=== PATIENT | male | born 1960 | race Caucasian/White ===

== ENCOUNTER 2018-05-07 21:07 | Observation (INO) | payer BC ==
[2018-05-07 22:44] LABS: BASO # 0.1 10^3/uL (0.0-0.2); BASO % 1.1 % (0.0-1.0); EOS # 0.1 10^3/uL (0.0-0.50); EOS % 2.3 % (0.0-3.0); HEMATOCRIT 39.4 % (42.0-52.0); HEMOGLOBIN 13.3 g/dl (13.5-17.5); IMMATURE GRANULOCYTE % 0.2 % (0-3.0); LYMPH # 2.2 10^3/uL (1.5-4.5); LYMPH % 38.8 % (24.0-44.0); MEAN CORPUSCULAR HEMOGLOBIN 29.6 pg (27.0-33.0); MEAN CORPUSCULAR HGB CONC 33.8 g/dl (32.0-36.5); MEAN CORPUSCULAR VOLUME 87.6 fl (80.0-96.0); MONO # 0.6 10^3/uL (0.0-0.8); MONO % 10.4 % (0.0-5.0); NEUTROPHILS # 2.6 10^3/uL (1.8-7.7); NEUTROPHILS % 47.2 % (36.0-66.0); PLATELET COUNT, AUTOMATED 209 10^3/uL (150-450); RED CELL DISTRIBUTION WIDTH 12.6 % (11.5-14.5); WHITE BLOOD COUNT 5.6 10^3/uL (4.0-10.0)
[2018-05-07 22:48] LABS: INR 1.47; PROTHROMBIN TIME 18.1 SECONDS (12.1-14.4)
[2018-05-07 22:49] LABS: PARTIAL THROMBOPLASTIN TIME 36.2 SECONDS (25.4-37.6)
[2018-05-07 23:01] LABS: ALKALINE PHOSPHATASE 49 U/L (45-117); ALT/SGPT 27 U/L (12-78); AST/SGOT 15 U/L (7-37); BILIRUBIN,DIRECT < 0.1 MG/DL (0.0-0.2); BILIRUBIN,TOTAL 0.3 MG/DL (0.2-1.0); BLOOD UREA NITROGEN 14 MG/DL (7-18); CALCIUM LEVEL 8.5 MG/DL (8.5-10.1); CHLORIDE LEVEL 109 MEQ/L (98-107); CPK CREATINE PHOSPHOKINASE 102 U/L (39-308); CREATININE FOR GFR 1.24 MG/DL (0.70-1.30); GLUCOSE, FASTING 91 MG/DL (70-100); POTASSIUM SERUM 3.9 MEQ/L (3.5-5.1); SODIUM LEVEL 144 MEQ/L (136-145); TROPONIN I < 0.02 NG/ML (< 0.10)
[2018-05-07 23:07] LABS: CK-MB VALUE MASS < 1.0 NG/ML (<3.6); MB/CK RELATIVE INDEX 0.98 (< OR =4)
[2018-05-07] MEDS: NS 1,000 ML IV (23:25)
[2018-05-07] MEDS ORDERED: ISOVUE-370 76% 100ML VIAL (Q9967) As Ordered (23:27)
[2018-05-08] MEDS ORDERED: ALBUTEROL SULFATE 2.5 MG/0.5 ML INH NEB SOLN NEB (02:15)
[2018-05-08] MEDS ORDERED: ACETAMINOPHEN TAB 650MG DOSE (2X325MG) PO (02:15)
[2018-05-08] MEDS: HEPARIN DRIP 25,000 UNITS in APPROPRIATE DILUENT 1 EA IV ×2 (04:13→06:37)
[2018-05-08 04:27] LABS: TROPONIN I < 0.02 NG/ML (< 0.10)
[2018-05-08] MEDS ORDERED: HEPARIN DRIP 25,000 UNITS in APPROPRIATE DILUENT 1 EA IV (04:31)
[2018-05-08] MEDS ORDERED: HEPARIN SOD (PORCINE) 5000 UNITS/ML VIAL IV ×3 (04:45→06:30)
[2018-05-08 05:38] LABS: HEMATOCRIT 37.6 % (42.0-52.0); HEMOGLOBIN 12.4 g/dl (13.5-17.5); MEAN CORPUSCULAR VOLUME 88.1 fl (80.0-96.0); PLATELET COUNT, AUTOMATED 193 10^3/uL (150-450); RED BLOOD COUNT 4.27 10^6/uL (4.30-6.10); RED CELL DISTRIBUTION WIDTH 12.7 % (11.5-14.5); WHITE BLOOD COUNT 5.4 10^3/uL (4.0-10.0)
[2018-05-08 07:35] LABS: ALBUMIN 3.4 GM/DL (3.2-5.2); ALBUMIN/GLOBULIN RATIO 1.06 (1.00-1.93); ALKALINE PHOSPHATASE 44 U/L (45-117); ALT/SGPT 27 U/L (12-78); ANION GAP 7 MEQ/L (8-16); AST/SGOT 14 U/L (7-37); BILIRUBIN,TOTAL 0.3 MG/DL (0.2-1.0); BLOOD UREA NITROGEN 17 MG/DL (7-18); CALCIUM LEVEL 8.3 MG/DL (8.5-10.1); CARBON DIOXIDE LEVEL 28 MEQ/L (21-32); CHLORIDE LEVEL 110 MEQ/L (98-107); CREATININE FOR GFR 1.24 MG/DL (0.70-1.30); GLOMERULAR FILTRATION RATE > 60.0 (>56); GLUCOSE, FASTING 91 MG/DL (70-100); MAGNESIUM LEVEL 2.1 MG/DL (1.8-2.4); POTASSIUM SERUM 4.3 MEQ/L (3.5-5.1); SODIUM LEVEL 145 MEQ/L (136-145); TOTAL PROTEIN 6.6 GM/DL (6.4-8.2)
[2018-05-08 12:32] LABS: PARTIAL THROMBOPLASTIN TIME 72.5 SECONDS (25.4-37.6)
[2018-05-08 14:43] LABS: ALBUMIN 3.6 GM/DL (3.2-5.2); ALBUMIN/GLOBULIN RATIO 1.06 (1.00-1.93); ANION GAP 7 MEQ/L (8-16); CARBON DIOXIDE LEVEL 28 MEQ/L (21-32)
[2018-05-08 15:07] LABS: BASO # 0.1 10^3/uL (0.0-0.2); BASO % 0.9 % (0.0-1.0); EOS # 0.2 10^3/uL (0.0-0.50); EOS % 2.4 % (0.0-3.0); HEMATOCRIT 38.8 % (42.0-52.0); HEMOGLOBIN 13.5 g/dl (13.5-17.5); IMMATURE GRANULOCYTE % 0.2 % (0-3.0); LYMPH # 1.9 10^3/uL (1.5-4.5); LYMPH % 30.1 % (24.0-44.0); MEAN CORPUSCULAR HEMOGLOBIN 29.7 pg (27.0-33.0); MEAN CORPUSCULAR HGB CONC 34.8 g/dl (32.0-36.5); MEAN CORPUSCULAR VOLUME 85.5 fl (80.0-96.0); MONO # 0.4 10^3/uL (0.0-0.8); MONO % 6.8 % (0.0-5.0); NEUTROPHILS # 3.8 10^3/uL (1.8-7.7); NEUTROPHILS % 59.6 % (36.0-66.0); PLATELET COUNT, AUTOMATED 215 10^3/uL (150-450); RED BLOOD COUNT 4.54 10^6/uL (4.30-6.10); RED CELL DISTRIBUTION WIDTH 12.5 % (11.5-14.5); WHITE BLOOD COUNT 6.3 10^3/uL (4.0-10.0)
[2018-05-08 15:22] LABS: PROTHROMBIN TIME 14.3 SECONDS (12.1-14.4)
[2018-05-08 15:25] LABS: ERYTHROCYTE SEDIMENTATION RATE 12 mm/hr (0-20)
[2018-05-08 15:33] LABS: C REACTIVE PROTEIN QUANTITATIV < 0.30 MG/DL (0.00-0.30)
[2018-05-08] MEDS: RIVAROXABAN 15 MG TAB (XARELTO) PO (17:36)
[2018-05-08] MEDS ORDERED: APIXABAN 5 MG TAB (ELIQUIS) PO (18:00)
[2018-05-09 06:19] LABS: HEMATOCRIT 38.1 % (42.0-52.0); HEMOGLOBIN 12.6 g/dl (13.5-17.5); MEAN CORPUSCULAR HGB CONC 33.1 g/dl (32.0-36.5); MEAN CORPUSCULAR VOLUME 87.8 fl (80.0-96.0); PLATELET COUNT, AUTOMATED 198 10^3/uL (150-450); RED BLOOD COUNT 4.34 10^6/uL (4.30-6.10); RED CELL DISTRIBUTION WIDTH 12.6 % (11.5-14.5); WHITE BLOOD COUNT 5.5 10^3/uL (4.0-10.0)
[2018-05-09 06:48] LABS: ANION GAP 5 MEQ/L (8-16); BLOOD UREA NITROGEN 14 MG/DL (7-18); CALCIUM LEVEL 8.6 MG/DL (8.5-10.1); CARBON DIOXIDE LEVEL 28 MEQ/L (21-32); CHLORIDE LEVEL 110 MEQ/L (98-107); CREATININE FOR GFR 1.17 MG/DL (0.70-1.30); GLOMERULAR FILTRATION RATE > 60.0 (>56); GLUCOSE, FASTING 84 MG/DL (70-100); POTASSIUM SERUM 4.1 MEQ/L (3.5-5.1); SODIUM LEVEL 143 MEQ/L (136-145)
[2018-05-09] MEDS: RIVAROXABAN 15 MG TAB (XARELTO) PO (08:29)
[2018-05-10 10:35] LABS: DRVV SCREEN 38.1 SEC; PTT LUPUS TYPE ANTICOAG SCREEN 0.9 (0-1.2)
== END 2018-05-09 10:08 | disposition home or self-care (01) ==
LOC: M ED INP 21:08 → M ED 21:07 → M MSPAV 05-08 04:22
DX: R07.89 Other chest pain (principal); R06.02 Shortness of breath; Z86.711 Personal history of pulmonary embolism; D64.9 Anemia, unspecified; Z79.02 Long term (current) use of antithrombotics/antiplatelets; Z87.891 Personal history of nicotine dependence
CPT/HCPCS: Q9967

== ENCOUNTER → 2018-05-24 | Outpatient (REF) | payer BC ==
[2018-05-24 18:55] LABS: D-DIMER QUANT 179.2 ng/ml (<500)
== END ==
LOC: M SFHCPLAZ 15:32
DX: Z00.00 Encounter for general adult medical examination without abnormal findings (principal)
CPT/HCPCS: 36415

== ENCOUNTER → 2018-06-29 | Outpatient (CLI) | payer BC | LOC: M CARPUL 08:32 | DX: G47.34 Idiopathic sleep related nonobstructive alveolar hypoventilation (principal) | CPT/HCPCS: 94060 ==

== ENCOUNTER → 2018-06-30 | Outpatient (CLI) | payer BC | LOC: M RAD 09:48 | DX: I26.99 Other pulmonary embolism without acute cor pulmonale (principal) | CPT/HCPCS: 71046 ==

== ENCOUNTER → 2018-07-18 | Outpatient (CLI) | payer BC | LOC: M SLEEP HO 12:45 | DX: G47.30 Sleep apnea, unspecified (principal) | CPT/HCPCS: G0399 ==

== ENCOUNTER 2018-09-28 07:53 | Day surgery (SDC) | payer BC ==
[~2018-09-28] VITALS: Ht 180.3 cm; Wt 100.6 kg
[~2018-09-28 07:53] MED LIST: NS 1,000 ML IV ONE; PROPOFOL 200 MG/20 ML VIAL As Ordered ONE; XARE15TA PO; XARE20TA PO
--- NOTE | 2018-09-28 09:31 | ROOR ---
Patient Name: Clair Stewart Procedure Date: 09/28/2018 9:05 AM Date of : 1960 Age: 58 Room: [facility] Gender: Male Note Status: Finalized Procedure: Colonoscopy Indications: Screening for colorectal malignant neoplasm Providers: Chavez Carlson DO Referring MD: Edgardo Schuler Do Requesting Provider: Medicines: Propofol per Anesthesia Complications: No immediate complications. Estimated blood loss: Minimal. Procedure: Pre-Anesthesia Assessment: - Prior to the procedure, a History and Physical was performed, and patient medications and allergies were reviewed. The patient is competent. The risks and benefits of the procedure and the sedation options and risks were discussed with the patient. All questions were answered and informed consent was obtained. Patient identification and proposed procedure were verified by the physician, the nurse, the anesthesiologist and the breeder service technician in the endoscopy suite. Mental Status Examination: alert and oriented. Airway Examination: normal oropharyngeal airway and neck mobility. Respiratory Examination: clear to auscultation. CV Examination: normal. Prophylactic Antibiotics: The patient does not require prophylactic antibiotics. Prior Anticoagulants: The patient has taken no previous anticoagulant or antiplatelet agents. ASA Grade Assessment: II - A patient with mild systemic disease. After reviewing the risks and benefits, the patient was deemed in satisfactory condition to undergo the procedure. The anesthesia plan was to use monitored anesthesia care (MAC). Immediately prior to administration of medications, the patient was re-assessed for adequacy to receive sedatives. The heart rate, respiratory rate, oxygen saturations, blood pressure, adequacy of pulmonary ventilation, and response to care were monitored throughout the procedure. The physical status of the patient was re-assessed after the procedure. The Colonoscope was introduced through the anus and advanced to the cecum, identified by the appendiceal orifice, ileocecal valve and palpation. The colonoscopy was performed without difficulty. The patient tolerated the procedure well. Findings: Multiple small and large-mouthed diverticula were found in the entire colon. Two hyperplastic polyps were found in the sigmoid colon. The polyps were 2 to 5 mm in size. These polyps were removed with a jumbo cold forceps. Resection and retrieval were complete. Estimated blood loss was minimal. The exam was otherwise without abnormality on direct and retroflexion views. Impression: - Diverticulosis in the entire examined colon. - Two 2 to 5 mm polyps in the sigmoid colon, removed with a jumbo cold forceps. Resected and retrieved. - The examination was otherwise normal on direct and retroflexion views. Recommendation: - Patient has a contact number available for emergencies. The signs and symptoms of potential delayed complications were discussed with the patient. Return to normal activities tomorrow. Written discharge instructions were provided to the patient. - Telephone my office for pathology results in 1 week. - Repeat colonoscopy in 5-10 years for surveillance based on pathology results. - Return to my office PRN. Chavez Carlson DO 09/28/2018 9:31:39 AM This report has been signed electronically. Number of Addenda: 0 Note Initiated On: 09/28/2018 9:05 AM Estimated Blood Loss: Estimated blood loss was minimal.
[2018-09-28 09:59] VITALS: BP 111/71
== END 2018-09-28 10:01 | disposition home or self-care (01) ==
LOC: M OPP 07:53
PROVIDERS: ATTEND Surgery
DX: Z12.11 Encounter for screening for malignant neoplasm of colon (principal); D12.5 Benign neoplasm of sigmoid colon; K63.5 Polyp of colon; K57.30 Diverticulosis of large intestine without perforation or abscess without bleeding; G47.30 Sleep apnea, unspecified

== ENCOUNTER → 2020-02-16 | Outpatient (CLI) | payer BC ==
[~2020-02-16] MED LIST changes: -NS 1,000 ML IV ONE; -PROPOFOL 200 MG/20 ML VIAL As Ordered ONE
--- NOTE | 2020-02-18 09:15 | ECHO ---
DATE OF SERVICE: 02/16/2020 REFERRING PROVIDER: Tonia Patel MD PATIENT LOCATION: Outpatient. REASON FOR THE STUDY: Shortness of breath, obstructive sleep apnea, history of ventricular septal defect: repaired. 2D MEASUREMENTS: IVS: 1.2 cm LV: 5.2 cm LVPW: 1.0 cm LA: 4.1 cm Aorta: 3.6 cm IVC: 1.4 cm DOPPLER MEASUREMENTS: Peak velocity across the aortic valve: 1.0 m/s Peak velocity across the LVOT: 0.79 m/s Mitral E: 1.0 Mitral A: 1.1 with a ratio of 0.9 2D COMMENTS: 1. Normal left ventricular size, wall thickness, and low normal global left ventricular systolic function. The estimated left ventricular systolic ejection fraction is 50% to 55%. 2. Mildly dilated left atrium. The right atrium appeared to be mildly enlarged. The right ventricle free wall was not well visualized. The patient had ventricular septal defect (VSD) repaired, patched. 3. The atrial septum appeared to be normal without evidence of defect or shunt. 4. Normal aortic root. 5. No pericardial effusion seen. 6. Mildly calcified aortic valve with normal leaflet excursion. No mitral valve, tricuspid valve, and pulmonic valve. 7. The inferior vena cava was normal in size, central venous pressure is probably normal. DOPPLER: Only trace to mild mitral regurgitation detected. Abnormal relaxation pattern was noted across the mitral valve leaflets consistent with features of grade 1 left ventricular diastolic dysfunction. IMPRESSION: 1. Low normal global left ventricular systolic function. There are some features of left ventricular diastolic dysfunction, abnormal relaxation. 2. Aortic valve sclerosis without stenosis or aortic regurgitation. 3. Trace to mild mitral regurgitation with a mildly enlarged left atrium at 4.1 cm. 4. The patient had prior slight ventricular septal defect repaired/patched.
== END ==
LOC: M CARPUL 09:05
PROVIDERS: ATTEND Internal Medicine Pulmonary Disease
DX: G47.33 Obstructive sleep apnea (adult) (pediatric) (principal)

== ENCOUNTER → 2020-08-08 | Outpatient (REF) | payer BC ==
[2020-08-08 15:09] LABS: BASO # 0.1 10^3/uL (0.0-0.2); EOS # 0.1 10^3/uL (0.0-0.5); EOS % 1.7 % (0.0-3.0); HEMATOCRIT 46.7 % (42.0-52.0); HEMOGLOBIN 14.9 g/dl (13.5-17.5); LYMPH # 2.2 10^3/uL (1.5-5.0); LYMPH % 36.3 % (24.0-44.0); MEAN CORPUSCULAR HEMOGLOBIN 27.9 pg (27.0-33.0); MEAN CORPUSCULAR HGB CONC 31.9 g/dl (32.0-36.5); MEAN CORPUSCULAR VOLUME 87.5 fl (80.0-96.0); MONO # 0.6 10^3/uL (0.0-0.8); MONO % 9.4 % (0.0-5.0); NEUTROPHILS # 3.1 10^3/uL (1.5-8.5); NEUTROPHILS % 51.3 % (36.0-66.0); PLATELET COUNT, AUTOMATED 243 10^3/uL (150-450); RED BLOOD COUNT 5.34 10^6/uL (4.30-6.10)
[2020-08-08 17:15] LABS: ALBUMIN 4.1 GM/DL (3.2-5.2); BILIRUBIN,TOTAL 0.5 MG/DL (0.2-1.0); CALCIUM LEVEL 9.6 MG/DL (8.8-10.2); CHOLESTEROL RISK RATIO 3.545 (<5); CREATININE FOR GFR 1.32 MG/DL (0.70-1.30); FREE T4 1.12 NG/DL (0.76-1.46); GLOMERULAR FILTRATION RATE 58.7 (>49); THYROID STIMULATING HORMONE 2.22 uIU/ML (0.358-3.740); TOTAL PROTEIN 7.7 GM/DL (6.4-8.2)
[2020-08-08 20:10] LABS: HEMOGLOBIN A1c 5.3 %
== END ==
LOC: M SFHCPLAZ 10:40
PROVIDERS: ATTEND Family Medicine
DX: R53.83 Other fatigue (principal); Z13.1 Encounter for screening for diabetes mellitus; Z13.220 Encounter for screening for lipoid disorders

== ENCOUNTER → 2020-08-15 | Outpatient (CLI) | payer BC ==
--- NOTE | 2020-08-15 08:39 | REP ---
INDICATION: R22.1 RT POSTERIOR NECK MASS. COMPARISON: None. TECHNIQUE: Multiple real-time ultrasonographic images. FINDINGS: Ultrasonography of a palpable lump posteriorly in the neck on the right reveals an ovoid mass with an echo lucent rim and echogenic center compatible with lymph node measuring 1.5 by 0.5 by 1.8 cm. This is upper normal size. IMPRESSION: The ultrasound findings are compatible with an upper normal size lymph node corresponding to the palpable lump. <Electronically signed by Chavez Dey > 08/15/20 0800
== END ==
LOC: M WHC 06:39
PROVIDERS: ATTEND Family Medicine
DX: R22.1 Localized swelling, mass and lump, neck (principal)

== ENCOUNTER → 2022-01-07 | Outpatient (REF) | payer OTHER | LOC: M SFHCPLAZ 19:57 | PROVIDERS: ATTEND Student in an Organized Health Care Education/Training Program | DX: J06.9 Acute upper respiratory infection, unspecified (principal) ==

== ENCOUNTER → 2022-05-06 | Outpatient (CLI) | payer OTHER ==
[~2022-05-06] MED LIST changes: +GASTROGRAFIN SOLUTION 30ML (Q9963) As Ordered ONE; +ISOVUE-370 76% 100ML VIAL As Ordered ONE
== END ==
LOC: M RAD 08:05
PROVIDERS: ATTEND Physician Assistant
DX: K60.5 Anorectal fistula (principal)
CPT/HCPCS: 74177; Q9963; Q9967

== ENCOUNTER → 2022-05-25 | Outpatient (CLI) | payer OTHER ==
[~2022-05-25] MED LIST changes: -GASTROGRAFIN SOLUTION 30ML (Q9963) As Ordered ONE; -ISOVUE-370 76% 100ML VIAL As Ordered ONE
== END ==
LOC: M RAD 13:04
PROVIDERS: ATTEND Physician Assistant
DX: R91.8 Other nonspecific abnormal finding of lung field (principal); Z87.891 Personal history of nicotine dependence

== ENCOUNTER → 2023-12-29 | Outpatient (CLI) | payer MEDICARE, OTHER | LOC: M RAD 10:56 | PROVIDERS: ATTEND Physician Assistant | DX: R06.00 Dyspnea, unspecified (principal); R91.1 Solitary pulmonary nodule ==

== ENCOUNTER 2024-02-18 07:54 | Day surgery (SDC) | payer MEDICARE, OTHER ==
[~2024-02-18] VITALS: Ht 180.3 cm; Wt 97.1 kg
[~2024-02-18 07:54] MED LIST changes: +FLUO-365 PO; +ROSU20TA61 PO
[2024-02-18] MEDS: NS 1,000 ML IV ONE (08:07)
[2024-02-18] MEDS ORDERED: propofoL 200 MG/20 ML VIAL As Ordered ONE (09:16)
[2024-02-18 09:22] VITALS: TEMP 97.8
[2024-02-18 09:36] VITALS: BP 117/71; O2SAT 98
[2024-02-18] MEDS ORDERED: fentaNYL 100 MCG/2 ML INJECTION As Ordered ONE (09:40)
== END 2024-02-18 09:46 | disposition home or self-care (01) ==
LOC: M OPP 07:54
PROVIDERS: ATTEND Surgery
DX: Z12.11 Encounter for screening for malignant neoplasm of colon (principal); Z86.010 Personal history of colon polyps; K64.1 Second degree hemorrhoids; K57.30 Diverticulosis of large intestine without perforation or abscess without bleeding; Z79.02 Long term (current) use of antithrombotics/antiplatelets; Z79.899 Other long term (current) drug therapy; G47.30 Sleep apnea, unspecified; Z87.891 Personal history of nicotine dependence

== ENCOUNTER 2024-09-01 21:12 | Inpatient (IN) | payer MEDICARE, OTHER ==
[~2024-09-01] VITALS: Ht 180.3 cm; Wt 106.3 kg
[~2024-09-01 21:12] MED LIST changes: -ROSU20TA61 PO; +ROSU20TA86 PO
[2024-09-01] MEDS ORDERED: PROPOFOL 1,000 MG/100 ML VIAL As Ordered ONE (21:36)
[2024-09-01] MEDS: ETOMIDATE INJ 20MG/10ML VIAL IV STA (21:47)
[2024-09-01 21:59] LABS: BASO # 0.1 10^3/uL (0.0-0.2); BASO % 1.4 % (0.0-1.0); EOS # 0.1 10^3/uL (0.0-0.5); EOS % 1.9 % (0.0-3.0); HEMATOCRIT 42.7 % (42.0-52.0); HEMOGLOBIN 13.8 g/dl (13.5-17.5); LYMPH # 2.5 10^3/uL (1.5-5.0); LYMPH % 38.6 % (24.0-44.0); MEAN CORPUSCULAR HEMOGLOBIN 28.4 pg (27.0-33.0); MEAN CORPUSCULAR HGB CONC 32.3 g/dl (32.0-36.5); MEAN CORPUSCULAR VOLUME 87.9 fl (80.0-96.0); MONO # 0.6 10^3/uL (0.0-0.8); MONO % 8.7 % (2.0-8.0); NEUTROPHILS # 3.1 10^3/uL (1.5-8.5); NEUTROPHILS % 49.2 % (36.0-66.0); PLATELET COUNT, AUTOMATED 234 10^3/uL (150-450); RED BLOOD COUNT 4.86 10^6/uL (4.30-6.10); WHITE BLOOD COUNT 6.4 10^3/uL (4.0-10.0)
[2024-09-01] MEDS: CHARCOAL ACTIVATED LIQUID 25GM/120ML BTL PO ONE (22:00)
[2024-09-01] MEDS: ROCURONIUM BROMIDE 50MG/5ML VIAL IV SCH (22:18)
[2024-09-01] MEDS: propofoL 1,000 MG in IV 1 EA IV SCH (22:26)
[2024-09-01 22:31] LABS: ABG BASE EXCESS -1.6 (-2.0-2.0); ABG HCO3 24.3 MMOL/L (22.0-26.0); ABG O2 SATURATION 91.7 % (95.0-99.0); ABG PARTIAL PRESSURE CO2 45.1 mmHg (35.0-45.0); ABG PARTIAL PRESSURE O2 64.1 mmHg (75.0-100.0); ABG TOTAL CO2 25.7 MMOL/L (23.0-31.0); ABG pH (ARTERIAL) 7.349 UNITS (7.350-7.450)
[2024-09-01 22:37] LABS: ETHYL ALCOHOL (ETHANOL) 0.208 % (0.000-0.010)
[2024-09-01 22:38] LABS: ALBUMIN 3.8 G/DL (3.2-5.2); ALKALINE PHOSPHATASE 60 U/L (40-129); ALT/SGPT 25 U/L (7.0-40); AST/SGOT 14 U/L (<34); BILIRUBIN,DIRECT 0.1 MG/DL (<0.4); BILIRUBIN,TOTAL 0.4 MG/DL (0.3-1.2); BLOOD UREA NITROGEN 13 MG/DL (9-23); CALCIUM LEVEL 9.3 MG/DL (8.3-10.6); CARBON DIOXIDE LEVEL 29 MMOL/L (20-31); CHLORIDE LEVEL 101 MMOL/L (98-107); CPK CREATINE PHOSPHOKINASE 69 U/L (46-171); GLOMERULAR FILTRATION RATE > 60.0 (>49); GLUCOSE, FASTING 89 MG/DL (74-106); SALICYLATE LEVEL < 3.0 MG/DL (<30); SODIUM LEVEL 137 MMOL/L (136-145); TOTAL PROTEIN 7.4 G/DL (5.7-8.2)
[2024-09-01 22:40] LABS: THYROID STIMULATING HORMONE 2.237 uIU/ML (0.55-4.78)
[2024-09-01] MEDS ORDERED: CEFDINIR 300 MG CAP (OMNICEF) PO ONE (22:40)
[2024-09-01] MEDS ORDERED: HOME MED LIST COMPLETE! XX SCH (23:10)
[2024-09-01] MEDS ORDERED: MAALOX 30 ML SUSP *UDC PO PRN (23:55)
[2024-09-01] MEDS ORDERED: MOM 30ML SUSPENSION UDC PO PRN (23:55)
[2024-09-01] MEDS ORDERED: ACETAMINOPHEN 325 MG TAB PO PRN (23:55)
[2024-09-02] VITALS (19 sets, daily range): BP systolic 87–141; BP diastolic 49–86; TEMP 97–98.9; O2SAT 89–99
[2024-09-02 00:20] LABS: AMPHETAMINES LEVEL URINE NEGATIVE (NEGATIVE); BARBITURATES URINE NEGATIVE (NEGATIVE); BENZODIAZEPINES URINE NEGATIVE (NEGATIVE); CANNABINOIDS URINE NEGATIVE (NEGATIVE); COCAINE METABOLITE URINE NEGATIVE (NEGATIVE); METHADONE URINE NEGATIVE (NEGATIVE); OPIATES URINE NEGATIVE (NEGATIVE); PHENCYCLIDINE URINE NEGATIVE (NEGATIVE)
[2024-09-02] MEDS: dexmedeTOMidine 200 MCG in IV 1 EA IV SCH (01:14)
[2024-09-02 01:52] LABS: ABG BASE EXCESS -2.2 (-2.0-2.0); ABG HCO3 22.7 MMOL/L (22.0-26.0); ABG O2 SATURATION 96.4 % (95.0-99.0); ABG PARTIAL PRESSURE CO2 39.6 mmHg (35.0-45.0); ABG PARTIAL PRESSURE O2 85.9 mmHg (75.0-100.0); ABG STANDARD HCO3 22.6 MMOL/L. (22.0-26.0); ABG TOTAL CO2 23.9 MMOL/L (23.0-31.0); ABG pH (ARTERIAL) 7.376 UNITS (7.350-7.450)
[2024-09-02] MEDS: propofoL 1,000 MG in IV 1 EA IV SCH (04:05)
[2024-09-02 04:39] LABS: HEMATOCRIT 39.2 % (42.0-52.0); HEMOGLOBIN 13.2 g/dl (13.5-17.5); MEAN CORPUSCULAR HEMOGLOBIN 29.2 pg (27.0-33.0); MEAN CORPUSCULAR HGB CONC 33.7 g/dl (32.0-36.5); MEAN CORPUSCULAR VOLUME 86.7 fl (80.0-96.0); PLATELET COUNT, AUTOMATED 196 10^3/uL (150-450); RED BLOOD COUNT 4.52 10^6/uL (4.30-6.10); WHITE BLOOD COUNT 8.2 10^3/uL (4.0-10.0)
[2024-09-02 05:15] LABS: ALBUMIN 3.4 G/DL (3.2-5.2); ALKALINE PHOSPHATASE 54 U/L (40-129); ALT/SGPT 22 U/L (7.0-40); AST/SGOT 15 U/L (<34); BILIRUBIN,TOTAL 0.5 MG/DL (0.3-1.2); BLOOD UREA NITROGEN 14 MG/DL (9-23); CALCIUM LEVEL 8.8 MG/DL (8.3-10.6); CARBON DIOXIDE LEVEL 23 MMOL/L (20-31); CHLORIDE LEVEL 102 MMOL/L (98-107); CREATININE FOR GFR 1.09 MG/DL (0.70-1.30); GLOMERULAR FILTRATION RATE > 60.0 (>49); GLUCOSE, FASTING 109 MG/DL (74-106); MAGNESIUM LEVEL 1.7 MG/DL (1.8-2.4); POTASSIUM SERUM 3.9 MMOL/L (3.5-5.1); SODIUM LEVEL 138 MMOL/L (136-145); TOTAL PROTEIN 6.5 G/DL (5.7-8.2)
[2024-09-02] MEDS: SODIUM CHLORIDE 0.9% 1000 ML IV ONE (05:59)
[2024-09-02] MEDS: LR 1,000 ML IV STA (07:47)
[2024-09-02] MEDS: NOREPINEPHRINE 4MG IN D5 250ML 4 MG in IV 1 EA IV SCH (07:56)
[2024-09-02 08:00] LABS: ABG BASE EXCESS -1.1 (-2.0-2.0); ABG HCO3 21.9 MMOL/L (22.0-26.0); ABG O2 SATURATION 89.2 % (95.0-99.0); ABG PARTIAL PRESSURE CO2 31.7 mmHg (35.0-45.0); ABG PARTIAL PRESSURE O2 53.2 mmHg (75.0-100.0); ABG STANDARD HCO3 23.4 MMOL/L. (22.0-26.0); ABG TOTAL CO2 22.9 MMOL/L (23.0-31.0); ABG pH (ARTERIAL) 7.458 UNITS (7.350-7.450)
[2024-09-02] MEDS: DOCUSATE SODIUM 100MG CAPSULE PO SCH (09:00)
[2024-09-02] MEDS: MAG SULF 1GM/100ML (MAG RUN) 1 GM in IV 1 EA IV ONE (10:09)
[2024-09-02] MEDS: PANTOPRAZOLE 40MG VIAL IV SCH (10:09)
[2024-09-02 14:09] LABS: PROCALCITONIN 0.45 ng/ml
[2024-09-02] MEDS: ROSUVASTATIN 10 MG TAB (CRESTOR) PO SCH (21:51)
[2024-09-03] VITALS (33 sets, daily range): BP systolic 72–138; BP diastolic 44–74; TEMP 97.3–97.9; O2SAT 91–97
[2024-09-03 04:58] LABS: HEMATOCRIT 37.7 % (42.0-52.0); HEMOGLOBIN 12.2 g/dl (13.5-17.5); MEAN CORPUSCULAR HEMOGLOBIN 28.9 pg (27.0-33.0); MEAN CORPUSCULAR HGB CONC 32.4 g/dl (32.0-36.5); MEAN CORPUSCULAR VOLUME 89.3 fl (80.0-96.0); PLATELET COUNT, AUTOMATED 179 10^3/uL (150-450); RED BLOOD COUNT 4.22 10^6/uL (4.30-6.10); WHITE BLOOD COUNT 8.5 10^3/uL (4.0-10.0)
[2024-09-03 05:27] LABS: ALBUMIN 2.9 G/DL (3.2-5.2); ALKALINE PHOSPHATASE 47 U/L (40-129); ALT/SGPT 16 U/L (7.0-40); AST/SGOT 9 U/L (<34); BILIRUBIN,TOTAL 0.6 MG/DL (0.3-1.2); BLOOD UREA NITROGEN 16 MG/DL (9-23); CALCIUM LEVEL 8.7 MG/DL (8.3-10.6); CARBON DIOXIDE LEVEL 28 MMOL/L (20-31); CHLORIDE LEVEL 108 MMOL/L (98-107); CREATININE FOR GFR 1.15 MG/DL (0.70-1.30); GLOMERULAR FILTRATION RATE > 60.0 (>49); GLUCOSE, FASTING 103 MG/DL (74-106); MAGNESIUM LEVEL 2.4 MG/DL (1.8-2.4); SODIUM LEVEL 143 MMOL/L (136-145); TOTAL PROTEIN 6.1 G/DL (5.7-8.2)
[2024-09-03] MEDS: HEPARIN SOD (PORCINE) 5000UNITS/ML 1ML VIAL/SYRINGE SC SCH (06:00)
[2024-09-03] MEDS: CEPACOL LOZENGE PO PRN (18:23)
[2024-09-03] MEDS: ENOXAPARIN 40MG/0.4ML SYRINGE (J1650 PER 10MG) SC SCH (21:12)
[2024-09-04 04:05] VITALS: BP 125/74; TEMP 97.7; O2SAT 93
[2024-09-04 07:31] LABS: HEMATOCRIT 39.8 % (42.0-52.0); HEMOGLOBIN 13.2 g/dl (13.5-17.5); MEAN CORPUSCULAR HEMOGLOBIN 28.9 pg (27.0-33.0); MEAN CORPUSCULAR HGB CONC 33.2 g/dl (32.0-36.5); MEAN CORPUSCULAR VOLUME 87.1 fl (80.0-96.0); PLATELET COUNT, AUTOMATED 191 10^3/uL (150-450); RED BLOOD COUNT 4.57 10^6/uL (4.30-6.10); WHITE BLOOD COUNT 5.9 10^3/uL (4.0-10.0)
[2024-09-04 07:52] LABS: ALBUMIN 3.3 G/DL (3.2-5.2); ALKALINE PHOSPHATASE 51 U/L (40-129); ALT/SGPT 19 U/L (7.0-40); AST/SGOT 12 U/L (<34); BILIRUBIN,TOTAL 0.6 MG/DL (0.3-1.2); BLOOD UREA NITROGEN 16 MG/DL (9-23); CALCIUM LEVEL 9.3 MG/DL (8.3-10.6); CARBON DIOXIDE LEVEL 27 MMOL/L (20-31); CHLORIDE LEVEL 108 MMOL/L (98-107); CREATININE FOR GFR 1.19 MG/DL (0.70-1.30); GLOMERULAR FILTRATION RATE > 60.0 (>49); GLUCOSE, FASTING 85 MG/DL (74-106); POTASSIUM SERUM 4.3 MMOL/L (3.5-5.1); SODIUM LEVEL 142 MMOL/L (136-145); TOTAL PROTEIN 6.9 G/DL (5.7-8.2)
[2024-09-04] MEDS: CEPACOL LOZENGE PO ONE (08:52)
[2024-09-04] MEDS: CHLORASEPTIC SPRAY MT ONE (11:33)
[2024-09-04 12:00] VITALS: BP 121/75; TEMP 97.5; O2SAT 96
[2024-09-04] MEDS: CEPACOL LOZENGE PO SCH (14:11)
[2024-09-04] MEDS ORDERED: BENZ1LOZ9 PO (17:19)
[2024-09-04] MEDS ORDERED: CHLO1.4S7 MT (17:49)
[2024-09-04] MEDS: CHLORASEPTIC SPRAY MT SCH (17:55)
[2024-09-04 19:49] VITALS: BP 134/89; TEMP 98.1; O2SAT 94
== END 2024-09-05 01:45 | DRG 917 ==
LOC: M ED 21:12 → EDBD 21:12 → M ED INP 23:52 → M ICU 09-02 01:03 → M MS5PR 09-03 17:52
PROVIDERS: ADMIT Student in an Organized Health Care Education/Training Program; ATTEND Student in an Organized Health Care Education/Training Program
PROC: 5A1935Z Respiratory Ventilation, Less than 24 Consecutive Hours (ICD-10-PCS; 2024-09-01)
PROC: 0BH17EZ Insertion of Endotracheal Airway into Trachea, Via Natural or Artificial Opening (ICD-10-PCS; 2024-09-01)
PROC: B246ZZZ Ultrasonography of Right and Left Heart (ICD-10-PCS; principal; 2024-09-02)
DX: T42.4X2A Poisoning by benzodiazepines, intentional self-harm, initial encounter (principal); R40.2A Nontraumatic coma due to underlying condition; G92.8 Other toxic encephalopathy; J98.11 Atelectasis; E87.20 Acidosis, unspecified; F32.2 Major depressive disorder, single episode, severe without psychotic features; T14.91XA Suicide attempt, initial encounter; F41.9 Anxiety disorder, unspecified; F32.A Depression, unspecified; E78.5 Hyperlipidemia, unspecified; Z91.51 Personal history of suicidal behavior; Z86.711 Personal history of pulmonary embolism; Z79.899 Other long term (current) drug therapy; Z96.659 Presence of unspecified artificial knee joint

== ENCOUNTER 2024-09-05 00:25 | Inpatient (IN) | payer MEDICARE, OTHER ==
[~2024-09-05] VITALS: Ht 180.3 cm; Wt 106.3 kg
[~2024-09-05 00:25] MED LIST changes: +BENZ1LOZ9 PO; +CHLO1.4S7 MT
[2024-09-05] MEDS ORDERED: ACETAMINOPHEN 325 MG TAB PO PRN (00:35)
[2024-09-05] MEDS ORDERED: MAALOX 30 ML SUSP *UDC PO PRN (00:35)
[2024-09-05] MEDS ORDERED: diphenhydrAMINE 25MG CAP PO PRN (00:35)
[2024-09-05] MEDS ORDERED: traZODone 50 MG TAB PO PRN (00:35)
[2024-09-05] MEDS ORDERED: MOM 30ML SUSPENSION UDC PO PRN (00:35)
[2024-09-05] MEDS ORDERED: IBUPROFEN 400MG TAB PO PRN (00:35)
[2024-09-05] MEDS ORDERED: HOME MED LIST COMPLETE! XX SCH (00:55)
[2024-09-05 02:30] VITALS: BP 144/86; TEMP 97.5; O2SAT 97
[2024-09-05 07:41] VITALS: BP 138/84; TEMP 97.7; O2SAT 97
[2024-09-05] MEDS: NICOTINE 14 MG/24 HR TRANSDERMAL TD SCH (08:28)
[2024-09-05 14:29] VITALS: BP 142/80; TEMP 97; O2SAT 99
[2024-09-05] MEDS ORDERED: CEPACOL LOZENGE PO PRN (18:45)
[2024-09-05] MEDS: CHLORASEPTIC SPRAY MT ONE (18:45)
[2024-09-05] MEDS: CEPACOL LOZENGE PO ONE (18:59)
[2024-09-05] MEDS: CHLORASEPTIC SPRAY MT SCH (20:39)
[2024-09-06 06:22] VITALS: BP 107/60; TEMP 99.1; O2SAT 95
== END 2024-09-06 09:46 | disposition home or self-care (01) | DRG 881 ==
LOC: M ED INP 00:32 → M PSY 01:45
PROVIDERS: ADMIT Psychiatry & Neurology Neurology; ATTEND Psychiatry & Neurology Neurology
DX: F32.A Depression, unspecified (principal); J98.11 Atelectasis; F41.1 Generalized anxiety disorder; E78.5 Hyperlipidemia, unspecified; Z96.659 Presence of unspecified artificial knee joint; J02.9 Acute pharyngitis, unspecified; Z79.899 Other long term (current) drug therapy; Z91.51 Personal history of suicidal behavior; Z87.891 Personal history of nicotine dependence; Z86.711 Personal history of pulmonary embolism

== ENCOUNTER → 2024-12-26 | Outpatient (CLI) | payer MEDICARE, OTHER | LOC: M PLAIMG 07:56 | PROVIDERS: ATTEND Physician Assistant | DX: R91.1 Solitary pulmonary nodule (principal) ==